=== PATIENT | female | born 1990 | race Two or more races ===

== ENCOUNTER 2019-12-12 15:35 | Inpatient (IN) | payer OTHER ==
--- NOTE | 2019-12-12 16:21 | HP ---
Past Medical History - Primary Care Physician PCP:: Sal Lynn ([facility]) - Admission Chief Complaint: painful contractions History Source: Patient Limitations to Obtaining History: Language Barrier ( translates) - Past Medical History ...: 4 ...Para: 3 ... Weeks Gestation by Dates: 41.5 ...EDC by Dates: 11/30/19 - Past Surgical History Hx Myomectomy: No Hx Transabdominal Cerclage: No Home Medications - Allergies Allergies/Adverse Reactions: Allergies Allergy/AdvReac Type Severity Reaction Status Date / Time No Known Allergies Allergy Verified 12/12/19 16:12 - Home Medications Home Medications: Ambulatory Orders Vitamins (Sjr) - 1 tab PO DAILY 12/12/19 Physical Exam - Maternity Constitutional: Yes: Well Nourished, Mild Distress - Abdominal Exam/OB Number of Fetuses: Single Presentation: Vertex Contractions: Yes Regularity: Irregular Intensity: Mild/Mod Monitor Mode: External Heart Rate (range): 140 Category: I Accelerations: Uniform Decelerations: None - Vaginal Exam/OB Vaginal Bleeding: No Speculum Exam: No Dilatation (cm): 4-5 Effacement (%): 50 Amniotic Membrane Status: Intact Station: -3 Hemorrhage Risk Assessment - Risk Factors Risk Score: 0 Risk Level: Low Risk Problem List - Problems (1) 41 weeks gestation of Assessment/Plan: 29 year old at 41w5d in early labor GBS positive Admission to labor and delivery Anticipate vag delivery Code(s): Z3A.41 - 41 WEEKS GESTATION OF
[2019-12-12] MEDS ORDERED: AMPICILLIN - 2 GM in SODIUM CHLORIDE 100 ML IVPB ONE (16:25)
[2019-12-12] MEDS ORDERED: ELECTROLYTE-148 SOLN 1,000 ML IV SCH (16:30)
[2019-12-12 16:48] LABS: BASO % 0.2 % (0-2.0); HEMATOCRIT 33.5 % (32.4-45.2); HEMOGLOBIN 11.1 GM/dL (10.7-15.3); MCH 28.7 pg (25.7-33.7); MCHC 33.1 g/dl (32.0-36.0); MEAN CELL VOLUME 86.8 fl (80-96); MEAN PLT VOLUME 8.7 fl (7.5-11.1); MONO % 7.8 % (3.8-10.2); PLATELET COUNT 219 K/MM3 (134-434); RBC 3.85 M/mm3 (3.60-5.2); RDW 16.9 % (11.6-15.6); WHITE BLOOD COUNT 8.9 K/mm3 (4.0-10.0)
[2019-12-12 16:58] LABS: INR 0.96 (0.83-1.09); PROTHROMBIN TIME (PATIENT) 11.3 SEC (9.7-13.0)
[2019-12-12 17:11] VITALS: BMI 29.0
[2019-12-12 17:15] LABS: BLOOD UREA NITROGEN 5.9 mg/dL (7-18); CALCIUM 8.6 mg/dL (8.5-10.1); CREATININE 0.6 mg/dL (0.55-1.3)
[2019-12-12] MEDS ORDERED: OXYTOCIN 30 UNITS in 0.9% NS 30 UNIT/500 ML INFUS.BAG IVPB ONE (18:28)
[2019-12-12] MEDS ORDERED: OXYTOCIN 30 UNITS in 0.9% NS 30 UNIT/500 ML INFUS.BAG IVPB SCH (18:30)
[2019-12-12] MEDS ORDERED: AMPICILLIN SODIUM 1 GM VIAL ONE (19:57)
--- NOTE | 2019-12-12 20:06 | PN ---
Progress Note (short form) - Note Progress Note: 29 year old at 41w+ in early labor VE /-2, AROM clear fluid Cat 1 tracing Contractions q 5-7 min Pitocin Anticipate vag delivery Problem List - Problems (1) 41 weeks gestation of Code(s): Z3A.41 - 41 WEEKS GESTATION OF
[2019-12-12] MEDS ORDERED: AMPICILLIN - 1 GM in SODIUM CHLORIDE 100 ML IVPB SCH (20:26)
[2019-12-12] MEDS ORDERED: ACETAMINOPHEN 325 MG TABLET (FP) ONE (21:01)
[2019-12-12] MEDS ORDERED: ACETAMINOPHEN 325 MG TABLET (FP) PO ONE (21:19)
[2019-12-12] MEDS ORDERED: OXYTOCIN 20 UNITS in 0.9% NS 20 UNIT/1,000 ML INFUS.BAG IV ONE (21:56)
[2019-12-12] MEDS ORDERED: LIDOCAINE HCL 1% PRESERVATIVE FREE - 30ML VIAL ONE (22:02)
[2019-12-12] MEDS ORDERED: BENZOCAINE 20% 57 GM BOTTLE TP PRN (22:17)
[2019-12-12] MEDS ORDERED: METHYLERGONOVINE MALEATE 0.2 MG/1 ML AMP IM PRN (22:17)
[2019-12-12] MEDS ORDERED: WITCH HAZEL 50% (TUCKS) 40 PAD/JAR PAD TP PRN (22:17)
[2019-12-12] MEDS ORDERED: BENZOCAINE 28 GM HEMORRHOIDAL OINTMENT TP PRN (22:17)
[2019-12-12] MEDS ORDERED: BISACODYL 10 MG SUPP.RECT RC PRN (22:17)
--- NOTE | 2019-12-12 22:17 | PN ---
Delivery - Delivery Vaginal Delivery: No Problems Type of Anesthesia: Local Episiotomy/Laceration: 1st degree EBL (cc): 300 Delivery, Single - Feeding Plan Initial Plan: Elected not to breastfeed exclusively throughout hospitalization
[2019-12-12] MEDS ORDERED: OXYTOCIN 20 UNITS in 0.9% NS 20 UNIT/1,000 ML INFUS.BAG IV SCH (22:30)
[2019-12-12] MEDS ORDERED: IBUPROFEN 600 MG TABLET (FP) PO ONE (22:59)
[2019-12-13] MEDS: ACETAMINOPHEN 325 MG TABLET (FP) PO PRN ×2 (03:35→21:30)
[2019-12-13] MEDS: IBUPROFEN 600 MG TABLET (FP) PO PRN ×3 (03:36→21:28)
[2019-12-13 08:49] LABS: BASO % 0.4 % (0-2.0); EOS % 0.6 % (0-4.5); HEMOGLOBIN 10.7 GM/dL (10.7-15.3); MCH 28.3 pg (25.7-33.7); MCHC 32.5 g/dl (32.0-36.0); MEAN CELL VOLUME 87.2 fl (80-96); MEAN PLT VOLUME 8.8 fl (7.5-11.1); MONO % 8.4 % (3.8-10.2); NEUT % 75.6 % (42.8-82.8); PLATELET COUNT 204 K/MM3 (134-434); RBC 3.78 M/mm3 (3.60-5.2); RDW 16.2 % (11.6-15.6); WHITE BLOOD COUNT 14.5 K/mm3 (4.0-10.0)
--- NOTE | 2019-12-13 10:59 | PN ---
Progress Note (short form) - Note Progress Note: s/p pt has no complaints abdomen soft + BS vitals stable mod lochia breasts soft no calf tenderness hct stable plan d/c home tomorrow.
[2019-12-13] MEDS ORDERED: SENNOSIDES/DOCUSATE COMBO (SENNA PLUS) TABLET (UD) PO PRN (22:00)
[2019-12-14] MEDS ORDERED: MAGNESIUM HYDROX 2400MG/30ML ORAL SUSPENSION 30 ML CUP PO ONE (09:13)
[2019-12-14] MEDS: ACETAMINOPHEN 325 MG TABLET (FP) PO PRN (09:38)
[2019-12-14] MEDS: IBUPROFEN 600 MG TABLET (FP) PO PRN (09:38)
--- NOTE | 2019-12-14 10:05 | DS ---
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: Vital Signs Temperature 98.3 F 12/13/19 22:00 Pulse Rate 76 12/13/19 22:00 Respiratory Rate 18 12/13/19 22:00 Blood Pressure 112/71 12/13/19 22:00 O2 Sat by Pulse Oximetry (%) 100 12/12/19 23:15 Labs: CBC, BMP 12/13/19 08:25 12/12/19 16:00 Delivery - Delivery Vaginal Delivery: No Problems Type of Anesthesia: Local Episiotomy/Laceration: 1st degree EBL (cc): 300 Delivery, Single - Stages of Labor Date 1st Stage Initiatied: 12/12/19 Time 1st Stage Initiated: 11:30 Date 2nd Stage Initiated: 12/12/19 Time 2nd Stage Initiated: 21:50 Date of Delivery: 12/12/19 Time of Delivery: 21:54 Time Placenta Delivered: 21:56 - 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 without complaints other than some cramping and soreness at suture, both relieved with tylenol. vss - af abd: soft, nt , nd, fundus firm ve decl. 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 It can be done later on - pt to d/w build manager who can refer accordingly Discharge Summary Problems reviewed: Yes Current Active Problems 41 weeks gestation of (Acute) Procedures: Principal: Hospital Course: admitted in labor underwent uncomplicated PP course uneventful Condition: Good - Instructions Diet, Activity, Other Instructions: regular diet activity as tolerated, but avoid heavy lifting, strenuous activity and intercourse. pericare f/u for PP check 4-6 weeks at [facility] call for appt.) Referrals: Sal Lynn MD [Staff Physician] - Disposition: HOME - Home Medications Comprehensive Discharge Medication List: Ambulatory Orders Vitamins (Sjr) - 1 tab PO DAILY 12/12/19 Acetaminophen [Tylenol .Regular Strength -] 650 mg PO Q3H PRN tablet 12/14/19 Ibuprofen [Motrin -] 600 mg PO Q6H PRN #50 tablet 12/14/19 Witch Isabella 50% (Tucks) [Tucks Pads -] 1 pad TP PRN PRN pad 12/14/19
[2019-12-14 10:59] VITALS: BP 110/72; PULSE 75; TEMP 98.1
== END 2019-12-14 13:10 | disposition home or self-care (01) | DRG 560 ==
LOC: JLDR 15:35 → J3W 12-13 00:40
PROVIDERS: ADMIT Obstetrics & Gynecology; ATTEND Obstetrics & Gynecology
PROC: 10E0XZZ Delivery of Products of Conception, External Approach (ICD-10-PCS; principal; 2019-12-12)
PROC: 10907ZC Drainage of Amniotic Fluid, Therapeutic from Products of Conception, Via Natural or Artificial Opening (ICD-10-PCS; 2019-12-12)
DX: O48.0 Post-term pregnancy (principal); Z37.0 Single live birth; O70.0 First degree perineal laceration during delivery; Z3A.41 41 weeks gestation of pregnancy
CPT/HCPCS: 36415; 59409; 80048; 85025; 85610; 85730; 86780; 86850; 86900; 86901; 87389